=== PATIENT | male | born 1965 | race American Indian/Alaskan Native ===

== ENCOUNTER 2022-01-03 14:24 | Emergency (ER) | payer MEDICAID ==
--- NOTE | 2022-01-03 17:32 | XRay Report ---
CHEST 1 VIEW 01/03/2022 4:22 PM INDICATION / CLINICAL INFORMATION: hx of HIV sent from h/d; weakness. COMPARISON: None available. FINDINGS: SUPPORT DEVICES: Permacath is noted on the right. Catheter tip projects the junction of the superior vena cava and right atrium. HEART / MEDIASTINUM: No significant abnormality. LUNGS / PLEURA: There is bullous disease noted in the upper lung zones. There is mild venous congesti on. No pneumothorax. ADDITIONAL FINDINGS: No significant additional findings. IMPRESSION: 1. There is bullous disease. There is mild venous congestion. Signer Name: Rocael Connelly MD Signed: 01/03/2022 5:28 PM Workstation Name: [id number]
--- NOTE | 2022-01-03 17:48 | Emergency Department Report ---
HPI - General Chief Complaint: Altered Mental Status PUI?: No - HPI HPI: 56-year old male with reported history from EMS of HIV, CD4 count unknown per patient, end-stage renal disease on dialysis, presents for evaluation of questionable altered mental status. EMS personnel is not readily available for evaluation. Per nursing report, EMS personnel state that the patient was at dialysis and he was observed to be approximately 3 hours into dialysis when he "seemed a little confused." Patient denies any symptoms at this time and states he feels well. Pain currently 0 out of 10. He denies any cough, chest pain, shortness of breath, difficulty breathing or palpitations, lightheadedness or dizziness, vomiting, abdominal pain, or if any other new symptoms. ED Past Medical Hx - Past Medical History Previous Medical History?: Yes Hx Renal Disease: Yes (HD) Hx HIV: Yes ED Review of Systems ROS: Stated complaint: AMS Other details as noted in HPI Comment: All other systems reviewed and negative Constitutional: no symptoms reported Physical Exam - Physical Exam Vital Signs: Vital Signs 01/03/22 01/03/22 01/03/22 14:32 14:47 16:00 Temperature 97.4 F L Pulse Rate 97 H 102 H 101 H Respiratory 16 17 Rate Blood Pressure 146/82 Blood Pressure 112/72 [Left] O2 Sat by Pulse 99 98 Oximetry 01/03/22 16:12 Temperature Pulse Rate Respiratory Rate Blood Pressure Blood Pressure [Left] O2 Sat by Pulse 100 Oximetry General: Gen: Cachectic, middle-aged male who appears significantly older than his stated chronological age, no drooling no stridor no distress HEENT: Normocephalic atraumatic pupils equally round and reactive to light extraocular muscles intact sclera anicteric Neck: Full range of motion, no midline spinal tenderness palpation, no JVD, no carotid bruits, no nuchal rigidity CVS: S1-S2 regular rate and rhythm with no gallops rubs or murmurs, chest wall nontender Pulmonary: Clear to auscultation bilaterally, no wheezes rales or rhonchi Abdomen: Soft nondistended nontender no guarding or rebound tenderness, no palpable deformities or step-offs, normal active bowel sounds, no hepatosplenomegaly, no pulsatile masses : Deferred Extremities: No cyanosis no clubbing no edema, intact distal peripheral pulses, Integumentary: Skin normal, no petechia no purpura no abscess no lacerations no evidence of trauma no evidence of infection Neuro: Patient is awake alert and oriented to person and place, he is unsure of the time , mentating well, cranial nerves II through XII intact, no focal neurodeficits, sensation grossly tact, no asterixis, no tremors, no tongue fasciculations Psych: Calm cooperative, mood affect normal ED Course Vital Signs 01/03/22 01/03/22 01/03/22 14:32 14:47 16:00 Temperature 97.4 F L Pulse Rate 97 H 102 H 101 H Respiratory 16 17 Rate Blood Pressure 146/82 Blood Pressure 112/72 [Left] O2 Sat by Pulse 99 98 Oximetry 01/03/22 16:12 Temperature Pulse Rate Respiratory Rate Blood Pressure Blood Pressure [Left] O2 Sat by Pulse 100 Oximetry ED Medical Decision Making - Lab Data Result diagrams: 01/03/22 17:20 01/03/22 17:20 - EKG Data -: EKG Interpreted by [facility] EKG shows normal: sinus rhythm Rate: normal - EKG Data When compared to previous EKG there are: previous EKG unavailable 01/03/22 18:00 Ventricular rate 90 bpm. P waves are present and proceed every QRS complex. Intervals normal. No ST segment depressions or elevations. No T wave flattening or inversions. No ectopy. No arrhythmia. Sinus rhythm. - Radiology Data Radiology results: report reviewed - Medical Decision Making 56-year-old male with a history of HIV, CD4 count unknown, end-stage renal disease on hemodialysis Sunday, brought in for dialysis for question of altered mental status. Vital signs stable. Patient observed here for several hours and has remained comfortable and well-appearing. He denies any complaints. Labs and diagnostic imaging reviewed. Patient confirms he is anuric secondary to end-stage renal disease and so therefore urinalysis cannot be obtained. 7:45 PM: I telephoned the patient's next of kin via the number documented in his electronic health record. The person who answered the phone and identified herself as Hannah Awad and she states she is the patient's sister and next of kin. She states the patient has HIV and is legally blind. She states he had a stroke in November and has been completely blind since then. She also reports that again he does undergo dialysis Sunday. She says she did not know that he was here in the ER the dialysis center did not inform her. I discussed with her the patient's presentation and mental status here. She confirmed that the patient is at his baseline mental status. She reports he is a long-term resident at [facility] as he cannot care for himself. 8:02 PM: I telephoned [facility]. Staff member confirms the patient is a resident there. I informed staff member that the patient has been medically cleared and will be returned to the facility upon discharge from the ER. She verbalized agreement. Critical care attestation.: If time is entered above; I have spent that time in minutes in the direct care of this critically ill patient, excluding procedure time. ED Disposition Clinical Impression: HIV (human immunodeficiency virus infection), ESRD (end stage renal disease) on dialysis Disposition: HOME / SELF CARE / HOMELESS Is pt being admited?: No Does the pt Need Aspirin: No Condition: Stable Additional Instructions: Follow-up with your primary care doctor for reassessment this week. This is very important. Continue to undergo hemodialysis as directed. Return to the nearest emergency department soon as possible if you develop weakness, chest pain, shortness of breath, difficulty breathing, any fever of 100.4 Fahrenheit or higher, or if any other new worrisome symptoms develop. Referrals: PRIMARY CAREMD [Primary Care Provider] - 3-5 Days
[2022-01-03 17:56] LABS: Basophils % (Auto) 0.3 % (0.0-1.8); Eosinophils % (Auto) 0.6 % (0.0-4.3); Hematocrit 22.5 % (35.5-45.6); Hemoglobin 7.5 gm/dl (11.8-15.2); Mean Corpuscular HGB Conc 34 % (32-34); Monocytes # (Auto) 0.5 K/mm3 (0.0-0.8); Monocytes % (Auto) 10.7 % (0.0-7.3); Platelet Count 109 K/mm3 (140-440); Red Blood Count 1.97 M/mm3 (3.65-5.03)
[2022-01-03 18:00] LABS: Mean Corpuscular Volume 114 fl (84-94)
[2022-01-03 18:20] LABS: Calcium 9.4 mg/dL (8.4-10.2)
--- NOTE | 2022-01-03 18:20 | Cat Scan Report ---
CT head/brain wo con INDICATION: confusion; hx of HIV, ESRD on h/d. TECHNIQUE: Routine CT head. All CT scans at this location are performed using CT dose reduction for A DAWIT by means of automated exposure control. COMPARISON: None. FINDINGS: Intracranial: Ramos-white matter differentiation is maintained. No intracranial hemorrhage. No extra a xial collection. No herniation. Confluent periventricular and centrum semiovale white matter hypoatte nuation. No mass effect. Atrophy which is greater than expected for age. Ex vacuo dilation of the lat eral ventricles. No hydrocephalus. Sinuses: Mild mucosal thickening in ethmoid air cells. Otherwise, paranasal sinuses and mastoid air c ells are essentially clear. Orbits: Globes are intact. Calvarium: No acute fracture. IMPRESSION: 1. 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 There is atrophy without mass effect consistent with chronic proc ess. Signer Name: Mike Muller MD Signed: 01/03/2022 6:16 PM Workstation Name: [id number]
[2022-01-03 19:23] VITALS: BP 150/83
--- NOTE | 2022-01-05 18:16 | Electrocardiograph Report ---
[facility] Test Date: 2022-01-03 Test Time: 15:03:00 Pat Name: WALESKA FISHER Department: Room: Gender: M [employer]: TERRANCE : 1965 Requested By: CARTER ALBRECHT Order Number: [id number] Reading MD: Bernard Chavez Measurements Intervals [place] Rate: 98 P: 51 DE: 127 QRS: 78 QRSD: 88 T: QT: 345 QTc: 441 Interpretive Statements Sinus rhythm Probable LVH with secondary repol abnrm No previous ECG available for comparison Electronically Signed On 01-05-2022 18:15:48 EDT by Bernard Chavez
== END 2022-01-03 23:39 | disposition home or self-care (01) ==
LOC: ED 14:24
DX: N18.6 End stage renal disease (principal); Z99.2 Dependence on renal dialysis; Z21 Asymptomatic human immunodeficiency virus [HIV] infection status; Z79.899 Other long term (current) drug therapy
CPT/HCPCS: 36415; 70450; 71045; 80048; 82962; 85025; 93005; 99284; 99285